=== PATIENT | male | born 1950 | race Hispanic/Latino ===

== ENCOUNTER 2018-01-19 15:30 | Inpatient (IN) | payer OTHER ==
[~2018-01-19] VITALS: Ht 175.3 cm; Wt 90.7 kg
[2018-01-19] MEDS ORDERED: ALBUTEROL/IPRATROPIUM 3 ML NEB NEB ONE ×2 (16:15→17:45)
[2018-01-19] MEDS ORDERED: METHYLPREDNISOLONE SOD SUCC 125 MG/2ML VIAL IV ONE (17:45)
[2018-01-19 22:15] VITALS: BP 145/72
[2018-01-19] MEDS: ALBUTEROL/IPRATROPIUM 3 ML NEB NEB SCH (23:00)
[2018-01-20] VITALS (7 sets, daily range): BP systolic 106–174; BP diastolic 65–79
[2018-01-20] MEDS ORDERED: LISINOPRIL 20 MG TAB PO ONE (00:15)
[2018-01-20] MEDS: METHYLPREDNISOLONE SOD SUCC 40 MG/ML VIAL IV SCH ×3 (00:50→12:00)
[2018-01-20] MEDS: ALBUTEROL/IPRATROPIUM 3 ML NEB NEB SCH ×2 (04:05→20:00)
[2018-01-20] MEDS ORDERED: ALBUTEROL/IPRATROPIUM 3 ML NEB NEB PRN (05:30)
[2018-01-20] MEDS ORDERED: HYDRALAZINE HCL 20 MG/ML VIAL IV PRN (05:30)
[2018-01-20 06:36] LABS: BASOPHILS % 0.1 % (0.0-1.0); HEMATOCRIT 41.7 % (38.2-49.6); HEMOGLOBIN 14.4 g/dL (14.0-18.0); LYMPHOCYTES % 14.1 % (18.0-39.1); MEAN CORPUSCULAR HGB CONC 34.5 g/dL (31-35); MEAN CORPUSCULAR VOLUME 84.1 fL (81-99); MONOCYTES # (AUTO) 0.2 (0.2-0.8); MONOCYTES % 2.1 % (4.4-11.3); NEUTROPHILS # (AUTO) 6.1 (2.1-6.9); NEUTROPHILS % 83.2 % (38.7-80.0); PLATELET COUNT 231 x10e3/uL (140-360); RED BLOOD COUNT 4.96 x10e6/uL (4.3-5.7); RED CELL DISTRIBUTION WIDTH 13.9 % (11.7-14.4)
[2018-01-20] MEDS ORDERED: BENZONATATE100 MG PO (06:43)
[2018-01-20] MEDS ORDERED: SALBUTAMOL (06:43)
[2018-01-20] MEDS ORDERED: LISINOPRIL10 MG PO (06:43)
[2018-01-20] MEDS ORDERED: ATORVASTATIN CA20 MG PO (06:43)
[2018-01-20] MEDS ORDERED: CLOPIDOGREL75 MG PO (06:43)
[2018-01-20 06:56] LABS: BLOOD UREA NITROGEN 13 mg/dL (7-26); BUN/CREATININE RATIO 17 (6-25); CALCIUM 9.5 mg/dL (8.4-10.2); CARBON DIOXIDE 25 mmol/L (22-29); CHLORIDE 104 mmol/L (98-107); CREATININE, SERUM 0.76 mg/dL (0.72-1.25); EST GLOMERULAR FILTRATION RATE > 60 ML/MIN (60-); GLUCOSE 160 mg/dL (74-118); SODIUM 138 mmol/L (136-145)
[2018-01-20] MEDS: LISINOPRIL 20 MG TAB PO SCH (08:28)
[2018-01-20] MEDS ORDERED: LEVOFLOXACIN 500 MG TAB PO SCH (16:00)
[2018-01-20] MEDS ORDERED: ENOXAPARIN SOD INJ 40 MG/0.4 ML SYR SC SCH (17:00)
[2018-01-21] VITALS: BP 154/65
[2018-01-21 04:00] VITALS: BP 106/81
[2018-01-21] MEDS: ALBUTEROL/IPRATROPIUM 3 ML NEB NEB SCH ×2 (07:00→11:15)
--- NOTE | 2018-01-21 07:04 | Diagnostic Imaging Report ---
EXAMINATION: CHEST SINGLE (PORTABLE) INDICATION: Pneumonia. COMPARISON: None FINDINGS: TUBES and LINES: None. LUNGS: Lungs are well inflated. There are bibasilar atelectasis. There is mild prominence of the central pulmonary vasculature, consistent with pulmonary venous congestion. There is evidence of interlobular septi thickening noted in the perihilar and bibasilar regions. PLEURA: No pleural effusion or pneumothorax. HEART AND MEDIASTINUM: Cardiac size is mildly enlarged. There are atherosclerotic calcifications within the aorta. BONES AND SOFT TISSUES: No acute osseous lesion. Soft tissues are unremarkable. UPPER ABDOMEN: No free air under the diaphragm. IMPRESSION: Venous congestion and mild interstitial edema present. Signed by: Dr. Maicol Burch M.D. on 01/21/2018 7:00 AM
[2018-01-21 08:06] VITALS: BP 130/60
[2018-01-21] MEDS ORDERED: ATORVASTATIN 20 MG TAB PO SCH (09:00)
[2018-01-21] MEDS ORDERED: PREDNISONE 20 MG TAB PO SCH (09:00)
[2018-01-21] MEDS ORDERED: ASPIRIN 325 MG TAB PO SCH (09:00)
[2018-01-21] MEDS ORDERED: CLOPIDOGREL BISULFATE 75 MG TAB PO SCH (09:00)
[2018-01-21] MEDS ORDERED: ASPIRIN 81 MG CHEW TAB PO SCH (09:00)
[2018-01-21] MEDS: LISINOPRIL 20 MG TAB PO SCH (09:08)
[2018-01-21] MEDS ORDERED: FUROSEMIDE INJ 10 MG/ML 2 ML VIAL IV ONE (10:30)
[2018-01-21] MEDS ORDERED: FUROSEMIDE INJ 10 MG/ML 2 ML VIAL ONE (10:43)
--- NOTE | 2018-01-21 10:56 | Discharge Summary ---
PRIMARY CARE DOCTOR: Dr. Bernadine Patton FINAL DIAGNOSIS: Chronic obstructive pulmonary disease exacerbation. SECONDARY DIAGNOSES 1. Hypertension. 2. Dyslipidemia. 3. Previous transient ischemic attack. CONSULTANTS: None. PROCEDURES/STUDIES PERFORMED: None. HISTORY: Per [facility] HOSPITAL COURSE: The patient was put on nebulizer treatments, steroids and Levaquin. He did well and felt better. His influenza screen was negative. Repeat chest x-ray still no infiltrate, but a little bit of congestion. His cough is betting better. The patient will receive a dose of IV Lasix 20 mg times 1 prior to discharge. He will go home on doxycycline times 5 more days for COPD exacerbation and a Medrol Dosepak per taper. The patient was advised to stop smoking. He received Lovenox for DVT prophylaxis. I personally ambulated him in the hallway without oxygen, and his O2 sat did not desaturate. The patient was seen and examined today. It took 32 minutes total to discharge this patient. CONDITION ON DISCHARGE: Stable. DISCHARGE MEDICATIONS: Please see medication reconciliation form. KIANNA TIDWELL M.D. Job#: [id number] [place] cc:BERNADINE PATTON M.D.
[2018-01-21 11:38] VITALS: BP 124/63
[2018-01-21] MEDS ORDERED: MEDROL4 MG (11:48)
[2018-01-21] MEDS ORDERED: DOXYCYCLINE HY100 MG PO (11:48)
[2018-01-21] MEDS ORDERED: ATORVASTATIN 40 MG TAB PO SCH (21:00)
== END 2018-01-21 12:01 | disposition home or self-care (01) | DRG 192 ==
LOC: FSED 15:30 → MED/SURG2 21:08
PROVIDERS: ADMIT Internal Medicine; ATTEND Internal Medicine
DX: J44.1 Chronic obstructive pulmonary disease with (acute) exacerbation (principal); I10 Essential (primary) hypertension; E78.5 Hyperlipidemia, unspecified; Z86.73 Personal history of transient ischemic attack (TIA), and cerebral infarction without residual deficits; F17.200 Nicotine dependence, unspecified, uncomplicated; Z79.02 Long term (current) use of antithrombotics/antiplatelets
CPT/HCPCS: 36415; 71045; 71046; 80048; 80053; 82553; 82948; 83880; 84484; 85025; 87400; 93005; 94640; 99284; J0360; J1650; J1940; J2920; J2930